=== PATIENT | male | born 1975 | race Native Hawaiian/Other Pacific Islander ===

== ENCOUNTER 2021-11-13 20:07 | Emergency (ER) | payer BC ==
[~2021-11-13] VITALS: Ht 182.9 cm; Wt 99.8 kg
[2021-11-13 20:14] VITALS: BP 151/86; TEMP 98.6
== END 2021-11-13 20:47 | disposition home or self-care (01) ==
LOC: ED 20:07
DX: Z20.822 Contact with and (suspected) exposure to COVID-19 (principal)
CPT/HCPCS: 87635; 99282; U0003